=== PATIENT | male | born 1965 | race Caucasian/White ===

== ENCOUNTER 2019-09-25 15:54 | Inpatient (IN) | payer BC ==
[~2019-09-25] VITALS: Ht 182.9 cm; Wt 103.4 kg
[2019-09-25 15:50] VITALS: BP 114/64
[2019-09-25] MEDS ORDERED: ONDANSETRON PF 4 MG/2 ML VIAL. IVP PRN (16:30)
[2019-09-25] MEDS ORDERED: fentaNYL PF VIAL 100 MCG/2 ML VIAL IVP PRN (16:30)
[2019-09-25] MEDS: IV NORMAL SALINE 1000ML BAG 1,000 ML IV SCH (17:03)
[2019-09-25 19:00] VITALS: BP 109/59
[2019-09-25 19:02] LABS: BASO % 0 % (0-3); EOS % 0 % (0-3); HEMATOCRIT 40.5 % (39.0-53.0); HEMOGLOBIN 13.9 g/dL (13.0-17.5); LYMPH # 0.3 x10^3/uL (1.0-4.8); LYMPH % 4 % (24-48); MEAN CORPUSCULAR HEMOGLOBIN 30 pg (25-35); MEAN CORPUSCULAR HGB CONC 34 g/dL (31-37); MEAN CORPUSCULAR VOLUME 88 fL (79-100); MONO # 0.4 x10^3/uL (0.0-1.1); MONO % 5 % (0-9); NEUT # 8.3 x10^3/uL (1.8-7.7); NEUT % 91 % (31-73); PLATELET COUNT 169 x10^3/uL (140-400); RED BLOOD COUNT 4.59 x10^6/uL (4.30-5.70); RED CELL DISTRIBUTION WIDTH 13.5 % (11.5-14.5); WHITE BLOOD COUNT 9.1 x10^3/uL (4.0-11.0)
[2019-09-25 19:16] LABS: CALCIUM 8.2 mg/dL (8.5-10.1); CREATININE 0.9 mg/dL (0.7-1.3); GFR 87.9; POTASSIUM 4.5 mmol/L (3.5-5.1); TOTAL BILIRUBIN 1.5 mg/dL (0.2-1.0)
[2019-09-25 19:24] LABS: % BANDS 1 % (0-9); % LYMPHS 1 % (24-48); % MONOS 3 % (0-10); % SEGS 95 % (35-66); PLT ESTIMATE ADEQUATE (ADEQUATE)
[2019-09-25 23:00] VITALS: BP 103/55
[2019-09-26] VITALS (9 sets, daily range): BP systolic 103–122; BP diastolic 59–74
[2019-09-26] MEDS: IV NORMAL SALINE 1000ML BAG 1,000 ML IV SCH ×2 (06:20→16:54)
[2019-09-26] MEDS ORDERED: SINCALIDE 2.09 MCG in IV NORMAL SALINE 50ML 30 ML IV ONE (09:00)
[2019-09-26] MEDS: PANTOPRAZOLE IV PUSH 40 MG VIAL. IVP SCH (09:30)
--- NOTE | 2019-09-26 10:06 | NUR ---
SW following. Discussed with RN, pt from home, possible surgery today. SW will continue to follow.
--- NOTE | 2019-09-26 13:47 | HP ---
ADMIT DATE: 09/25/2019 HISTORY OF PRESENT ILLNESS: The patient is a 54-year-old male patient who presented to the Emergency Room via EMS. He states overnight, he began experiencing severe right upper quadrant pain. Apparently, he had similar symptoms on and off, which lasted about a year ago, underwent a workup and was told that the problem was his gallbladder. He has not had any nausea, vomiting, diarrhea, or significant chest discomfort. He denies any shortness of breath, fever, or chills. He was noted to be bradycardic and hypotensive on arrival and there are no alleviating or exacerbating factors in his symptoms. Otherwise, he states that since his prior gallbladder episode, he has been watching what he eats. He has been given acid-reducing medication, which helps manage his symptoms. He was basically extensively investigated in the Emergency Room and his lab work was basically unremarkable. His white cell count is only 8800. His chemistry was nonrevealing. His prothrombin time, INR and aPTT were normal. Urinalysis was also unrevealing. Ultrasound of the abdomen showed that the pancreas is not well visualized due to bowel gas. The liver length measures 15.1, has increased echogenicity noted throughout the liver, likely hepatic steatosis. His gallbladder was contracted. The gallbladder wall thickness measures 4.1. He has had a chest x-ray, which was unremarkable. He underwent CT scan of the abdomen and pelvis, which basically showed minimal bibasilar lung atelectasis. No evidence of free air identified in the abdomen. The liver, spleen, and adrenals grossly appear unremarkable. Gallbladder is mildly distended. Questionable gallstone identified in the gallbladder. Stomach is mildly distended. The visualized pancreas grossly appears unremarkable. His small bowel is nondilated. The appendix is normal, mild thickened appearance of the wall of the colon, particularly in the distal descending colon, sigmoid colon with minimal surrounding fat stranding, likely colitis. Urinary bladder is mildly distended. Small fat-containing umbilical hernia. The bilateral kidneys enhanced symmetrically. Moderate degenerative changes, bilateral hip joint, moderate degenerative changes of lumbar spine and the patient apparently has received IV fluid as well as IV fentanyl and famotidine and given that he had similar symptoms, a decision was made to transfer him to [facility] to arrange for hepatobiliary scan and to consult the surgical team. PAST MEDICAL HISTORY: Unremarkable except for what seems to be gastroesophageal reflux disease. PAST SURGICAL HISTORY: Tonsillectomy. ALLERGIES: He has no known drug allergies. MEDICATIONS: He is currently on Zantac 150 mg once a day. He is also on Tylenol 650 as needed. FAMILY HISTORY: He is the only child. He has no brothers or sisters. Father at age of 75 because of lung cancer. He also had coronary artery bypass graft in his late 60s. His mother at the age of 72 as a complication of diabetes with peripheral vascular disease and myocardial infarction. SOCIAL HISTORY: He is , has 1 son. He never smoked, does not drink alcohol or use any recreational drugs. He works for [employer]. REVIEW OF SYSTEMS: The patient denied any blurring of vision, cataract, glaucoma, or macular degeneration. Denied any earache, tinnitus or sensorineural deafness. Denied any nosebleeds, stuffy nose or postnasal drip. Denied any sore throat, sore tongue, toothache, hoarseness of voice or difficulty swallowing. Denied any nausea, vomiting, diarrhea or constipation. Denied any hematemesis, melena or hematochezia. Denied any dysuria, frequency or hematuria. Denied any chest pain, shortness of breath, orthopnea, paroxysmal nocturnal dyspnea. Denied any cough, phlegm or hemoptysis. Did complain of dizziness and what seems to be things spinning around that started actually even on Tuesday and Tuesday according to him. PHYSICAL EXAMINATION: GENERAL: On arrival to the Emergency Room, he apparently was bradycardic with a heart rate of 48 and his blood pressure was 87/40, temperature was 98.1, respiratory rate 20, and oxygen saturation was 99%. HEAD, EYES, EARS, NOSE AND THROAT: Normocephalic, atraumatic. NECK: Supple. HEART: Showed normal first and second sounds. No gallop or murmur. CHEST: Clear to auscultation. No crepitation or rhonchi. ABDOMEN: Distended, soft, nontender. No guarding or rigidity. No organomegaly. All hernial orifices intact. Bowel sounds normal. NEUROLOGIC: He was awake, alert, responding appropriately. All cranial nerves intact. EXTREMITIES: He moves extremities spontaneously. He has had an EKG, which basically showed that he has sinus bradycardia. LABORATORY DATA: Showed his white cell count was 8800, hemoglobin 14, hematocrit 42, MCV 90, and platelet count of 165,000. His chemistry showed a serum sodium 142, potassium 3.9, chloride 107, anion gap of 8, BUN 17, creatinine 1.2, estimated GFR was 63 mL per minute. His glucose 121, lactic acid was only 1.4, calcium was 8.7. Total bilirubin, AST, ALT, alkaline phosphatase were normal. Troponin was less than 0.017. Total protein was 6.5, albumin 3.5, lipase was 151. His prothrombin time, INR and aPTT were normal. Urinalysis showed the urine was yellow, clear with a pH of 8.5, specific gravity of 1.015. The urine was negative for protein, glucose, ketones, blood, nitrite. The urine was negative for leukocyte esterase, occasional rbc's, 1-4 wbc's, and no bacteria. His abdominal ultrasound showed the patient has contracted appearing gallbladder, probably secondary to n.p.o. status. He has also hepatic steatosis. Chest x-ray was unremarkable, showed no acute cardiopulmonary process or pneumoperitoneum and his CT scan of the abdomen with IV contrast showed mild thickened appearance of the wall of the colon, particularly in the distal descending colon and sigmoid colon with minimal surrounding fat stranding like colitis. Questionable gallstone identified in the gallbladder for which ultrasound was done. Given the fact that he has presented with right upper quadrant pain and the bladder wall was thickened and although it is contracted, a decision was made to transfer him to [facility] to keep him n.p.o., continue with IV fluid. We will arrange for him to have a hepatobiliary scan and to consult the surgical team. RAMON ARCHIBALD MD DR: ELIANA/paola JOB#: [id number] / [id number]
--- NOTE | 2019-09-26 13:51 | EKG ---
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
--- NOTE | 2019-09-26 13:52 | EKG ---
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
--- NOTE | 2019-09-26 13:55 | PN ---
DATE: 09/26/2019 SUBJECTIVE: The patient is resting, slightly propped up in bed, in no apparent respiratory distress. Today, he denied any complaint. In particular, he denied any right upper quadrant pain. He has no further episodes of dizziness, lightheadedness, or vertigo. Denied any nausea, vomiting, diarrhea, or constipation. He apparently has been up and about without feeling dizzy or lightheaded. PHYSICAL EXAMINATION: GENERAL: However, when I examined him this afternoon, he looked well and was clearly in no apparent respiratory distress. There is no pallor, jaundice, cyanosis or thyromegaly. No jugular venous distention. No lower limb edema. VITAL SIGNS: His heart rate was 79, blood pressure was 112/67, temperature was 98.1, respiratory rate was 17 and oxygen saturation was 96%. HEAD, EYES, EARS, NOSE AND THROAT: Normocephalic, atraumatic. NECK: Supple. HEART: Showed normal first and second heart sounds. No gallop or murmur. CHEST: Clear to auscultation. No crepitation or rhonchi. ABDOMEN: Distended, soft, nontender. NEUROLOGIC: He is awake, alert, responding appropriately. All cranial nerves are intact. He moves extremities without difficulty. His intake and output were incompletely recorded. LABORATORY DATA: However, his lab work this morning showed a white cell count of 9100; hemoglobin 13.9; hematocrit 40; MCV 88 and platelet count of 169,000. His chemistry showed a serum sodium 140, potassium 4.5, chloride 106, bicarbonate 29, anion gap of 5, BUN 17, creatinine was 0.9, estimated GFR was 88 mL per minute. His glucose 131. Calcium was 8.2. Total bilirubin, AST and ALT are markedly elevated; however, alkaline phosphatase is normal. Total protein 6. Albumin 3. ASSESSMENT: In summary, this is a 54-year-old male patient, who came with right abdominal pain, found to be bradycardic, hypotensive; however, his ultrasound showed thickened wall and contracted gallbladder and as per Dr. Daniel, the hepatobiliary scan was normal; however, surprisingly his liver enzymes have risen dramatically compared to what they were yesterday. PLAN: My plan is to consult the Gastroenterology team. I will also arrange for him to have an EKG and check 2 more sets of cardiac enzyme, perhaps to rule out right ventricular infarct. RAMON ARCHIBALD MD DR: ELIANA/paola JOB#: [id number] / [id number]
[2019-09-26 14:08] LABS: RED BLOOD COUNT 4.67 x10^6/uL (4.30-5.70); RED CELL DISTRIBUTION WIDTH 13.2 % (11.5-14.5); WHITE BLOOD COUNT 6.4 x10^3/uL (4.0-11.0)
[2019-09-26 14:19] LABS: CALCIUM 7.9 mg/dL (8.5-10.1); GFR 77.9; POTASSIUM 3.8 mmol/L (3.5-5.1)
[2019-09-26 14:24] LABS: ALBUMIN 3.1 g/dL (3.4-5.0); ALBUMIN/GLOBULIN RATIO 1.2 (1.0-1.7); TOTAL BILIRUBIN 0.7 mg/dL (0.2-1.0); TOTAL PROTEIN 5.7 g/dL (6.4-8.2)
--- NOTE | 2019-09-26 14:49 | PDOC2 ---
GI CONSULT Reason For Consult: RUQ pain and abnormal LFTs HPI: HPI: Pleasant 54 y/o male transferred from [facility] yesterday. Not feeling well since Tuesday - had some lightheadedness ("spinny head") and "pinging" pain in RUQ. Thought pain might have been related to eating greasy food. [place] pain in midback (not between shoulder blades). All symptoms worsened Tuesday morning and he went to the ER. Evaluation there included labs showing normal WBC, LFTs, and lipase. CXR was unrevealing. US showed contracted GB and hepatic steatosis. CT showed questionable gallstones, mildly distended stomach, and mild thickened appearance of the wall of the colon particularly in the distal descending and sigmoid colon w/ minimal surrounding fat stranding. Here, bili, AST, and ALT have been elevated. Had a HIDA - results pending. Has had similar RUQ pain in the past. Was evaluated for this at [facility] in 2016 - says was told his gallbladder didn't function normally but emergent surgery was not recommended. Around that time he was taking NSAIDs for aches and pains related to work (at [employer]) and was started on a PPI. Was hospitalized a few times for recurrent pain and through follow-up appointments eventually had an EGD and colonoscopy which were reportedly normal. Hasn't had sever pain since until yesterday morning, though occasionally has mild recurrence related to types of foods (burgers, fries, ice cream). Pain usually occurs after eating. PCP advised he change from PPI to H2 joan at some point due to concerns for long-term use and possible bone loss. He now takes ranitidine 150mg BID (after breakfast and before bed) for occasional reflux. Also takes Tums PRN. No dysphagia, n/v, diarrhea, constipation, hematochezia, melena, change in appetite, bloating, or weight loss. No liver, pancreas, or PUD history. Now takes Tylenol instead of NSAIDs. He mentions he was told his heart rate was low in the ambulance. Nurse says plans to transfer to cardiac unit for ?EKG abnormality. PMH: PMH: GERD tonsillectomy FH: Family History: Cancer (father - lung), CAD, DM, Other (grandmother - gallstones) Social History: Smoke: No ALCOHOL: none Drugs: None ROS: GEN: Denies fevers, chills, sweats HEENT: Denies blurred vision, sore throat CV: Denies chest pain RESP: Denies shortness of air, cough GI: Per HPI : Denies hematuria, dysuria ENDO: Denies weight changes NEURO: +dizziness MSK: Denies weakness, joint pain/swelling SKIN: Denies jaundice, pruritus Vitals: Vitals: Vital Signs Date Time Temp Pulse Resp B/P (MAP) Pulse Ox O2 Delivery O2 Flow Rate FiO2 09/26/19 10:51 98.1 79 17 112/67 (82) 96 Room Air 98.1 Labs: Labs: Laboratory Tests Test 09/25/19 18:35 09/26/19 13:55 White Blood Count 9.1 x10^3/uL (4.0-11.0) 6.4 x10^3/uL (4.0-11.0) Red Blood Count 4.59 x10^6/uL (4.30-5.70) 4.67 x10^6/uL (4.30-5.70) Hemoglobin 13.9 g/dL (13.0-17.5) 14.0 g/dL (13.0-17.5) Hematocrit 40.5 % (39.0-53.0) 41.0 % (39.0-53.0) Mean Corpuscular Volume 88 fL (79-100) 88 fL (79-100) Mean Corpuscular Hemoglobin 30 pg (25-35) 30 pg (25-35) Mean Corpuscular Hemoglobin Concent 34 g/dL (31-37) 34 g/dL (31-37) Red Cell Distribution Width 13.5 % (11.5-14.5) 13.2 % (11.5-14.5) Platelet Count 169 x10^3/uL (140-400) 159 x10^3/uL (140-400) Neutrophils (%) (Auto) 91 % (31-73) Lymphocytes (%) (Auto) 4 % (24-48) Monocytes (%) (Auto) 5 % (0-9) Eosinophils (%) (Auto) 0 % (0-3) Basophils (%) (Auto) 0 % (0-3) Neutrophils # (Auto) 8.3 x10^3/uL (1.8-7.7) Lymphocytes # (Auto) 0.3 x10^3/uL (1.0-4.8) Monocytes # (Auto) 0.4 x10^3/uL (0.0-1.1) Eosinophils # (Auto) 0.0 x10^3/uL (0.0-0.7) Basophils # (Auto) 0.0 x10^3/uL (0.0-0.2) Segmented Neutrophils % 95 % (35-66) Band Neutrophils % 1 % (0-9) Lymphocytes % 1 % (24-48) Monocytes % 3 % (0-10) Platelet Estimate Adequate (ADEQUATE) Sodium Level 140 mmol/L (136-145) 141 mmol/L (136-145) Potassium Level 4.5 mmol/L (3.5-5.1) 3.8 mmol/L (3.5-5.1) Chloride Level 106 mmol/L (98-107) 107 mmol/L (98-107) Carbon Dioxide Level 29 mmol/L (21-32) 27 mmol/L (21-32) Anion Gap 5 (6-14) 7 (6-14) Blood Urea Nitrogen 17 mg/dL (8-26) 11 mg/dL (8-26) Creatinine 0.9 mg/dL (0.7-1.3) 1.0 mg/dL (0.7-1.3) Estimated GFR (Cockcroft-Gault) 87.9 77.9 BUN/Creatinine Ratio 19 (6-20) 11 (6-20) Glucose Level 131 mg/dL (70-99) 120 mg/dL (70-99) Calcium Level 8.2 mg/dL (8.5-10.1) 7.9 mg/dL (8.5-10.1) Total Bilirubin 1.5 mg/dL (0.2-1.0) 0.7 mg/dL (0.2-1.0) Aspartate Amino Transf (AST/SGOT) 200 U/L (15-37) 93 U/L (15-37) Alanine Aminotransferase (ALT/SGPT) 169 U/L (16-63) 152 U/L (16-63) Alkaline Phosphatase 68 U/L (46-116) 69 U/L (46-116) Troponin I Quantitative < 0.017 ng/mL (0.000-0.055) < 0.017 ng/mL (0.000-0.055) Total Protein 6.0 g/dL (6.4-8.2) 5.7 g/dL (6.4-8.2) Albumin 3.0 g/dL (3.4-5.0) 3.1 g/dL (3.4-5.0) Albumin/Globulin Ratio 1.0 (1.0-1.7) 1.2 (1.0-1.7) Lipase 126 U/L (73-393) Allergies: Coded Allergies: No Known Medication Allergies (Verified Allergy, Unknown, 09/25/19) Medications: Current Medications Medications (Trade) Dose Ordered Sig/Neeraj Route PRN Reason Start Time Stop Time Status Last Admin Dose Admin Sodium Chloride 1,000 ml @ 75 mls/hr [id number] IV 09/25/19 16:30 09/26/19 06:20 Fentanyl Citrate (Fentanyl 2ml Vial) 50 mcg PRN Q3HRS PRN IVP PAIN 09/25/19 16:30 09/25/19 17:00 Pantoprazole Sodium (PROTONIX VIAL for IV PUSH) 40 mg DAILYAC IVP 09/26/19 07:30 09/26/19 09:30 Sincalide 2.09 mcg/Sodium Chloride 30 ml @ 120 mls/hr 1X ONCE IV 09/26/19 09:00 09/26/19 09:14 DC 09/26/19 09:07 PE: GEN: NAD HEENT: Atraumatic, PERRL LUNGS: CTAB HEART: RRR ABD: NABS, S/ND/NT EXTREMITY: No edema SKIN: No rashes, no jaundice NEURO/PSYCH: A & O 3 A/P: A/P: Chronic/recurrent RUQ pain - worse yesterday Abnormal LFTs GERD - on H2 joan BID, had EGD within 5 years CRC screen - reportedly normal <[address] [facility] Hepatic steatosis ?cholelithiasis -- Reviewed w/ Dr. Aragon - recheck US - okay to resume diet tonight after. Agree w/ PPI. Recheck labs in [facility] September 26, 2019 14:49
--- NOTE | 2019-09-26 16:09 | PDOC2 ---
PEDRO LUIS RICHTER [employer] 09/26/19 1609: CARDIAC CONSULT DATE OF CONSULT Date of Consult DATE: 09/26/19 TIME: 15:57 REASON FOR CONSULT Reason for Consult: EKG REFERRING PHYSICIAN Referring Physician: Dr. Rich SOURCE Source: Chart review, Patient HISTORY OF PRESENT ILLNESS HISTORY OF PRESENT ILLNESS This is a 54 yo male who presented initially to [facility] for abdominal pain. Was noted to be bradycardiac and mildly hypotensive upon arrival to the ED. Was transferred to [facility] with concerns of gallstones. Initial EKG at [facility] shows SB. Note acute changes. HR has improved here at [facility]. EKG x2 without acute changes. Trop negative x2. Denies any chest pain, palpitations, or SOA. Abdominal pain has improved. PAST MEDICAL HISTORY GI: GERD Hepatobiliary: Cholelithiasis PAST SURGICAL HISTORY Past Surgical History: Tonsillectomy FAMILY HISTORY Family History: Diabetes, Heart Disease SOCIAL HISTORY Smoke: No ALCOHOL: none Drugs: None Lives: with Family CURRENT MEDICATIONS CURRENT MEDICATIONS Current Medications Medications (Trade) Dose Ordered Sig/Nereaj Route PRN Reason Start Time Stop Time Status Last Admin Dose Admin Sodium Chloride 1,000 ml @ 75 mls/hr [id number] IV 09/25/19 16:30 09/26/19 06:20 Fentanyl Citrate (Fentanyl 2ml Vial) 50 mcg PRN Q3HRS PRN IVP PAIN 09/25/19 16:30 09/25/19 17:00 Pantoprazole Sodium (PROTONIX VIAL for IV PUSH) 40 mg DAILYAC IVP 09/26/19 07:30 09/26/19 09:30 Sincalide 2.09 mcg/Sodium Chloride 30 ml @ 120 mls/hr 1X ONCE IV 09/26/19 09:00 09/26/19 09:14 DC 09/26/19 09:07 ALLERGIES ALLERGIES: Coded Allergies: No Known Medication Allergies (Verified Allergy, Unknown, 09/25/19) ROS Review of System 14 point ROS conducted with pertinent positives noted above in HPI PHYSICAL EXAM General: Alert, Oriented X3, Cooperative, No acute distress HEENT: Atraumatic, Mucous membr. moist/pink Lungs: Clear to auscultation Heart: Regular rate, Normal S1, Normal S2, No murmurs Abdomen: Soft Extremities: No edema Skin: No breakdown, No significant lesion Neuro: Normal speech, Sensation intact Psych/Mental Status: Mental status NL, Mood NL MUSCULOSKELETAL: No deformity, No swelling VITALS/I&O VITALS/I&O: Vital Signs Date Time Temp Pulse Resp B/P (MAP) Pulse Ox O2 Delivery O2 Flow Rate FiO2 09/26/19 15:05 97.9 82 18 113/64 (80) 95 Room Air 97.9 I & O 09/25/19 09/25/19 09/26/19 15:00 23:00 07:00 Output Total 400 ml Balance -400 ml LABS Lab: Laboratory Tests Test 09/25/19 18:35 09/26/19 13:55 White Blood Count 9.1 x10^3/uL (4.0-11.0) 6.4 x10^3/uL (4.0-11.0) Red Blood Count 4.59 x10^6/uL (4.30-5.70) 4.67 x10^6/uL (4.30-5.70) Hemoglobin 13.9 g/dL (13.0-17.5) 14.0 g/dL (13.0-17.5) Hematocrit 40.5 % (39.0-53.0) 41.0 % (39.0-53.0) Mean Corpuscular Volume 88 fL (79-100) 88 fL (79-100) Mean Corpuscular Hemoglobin 30 pg (25-35) 30 pg (25-35) Mean Corpuscular Hemoglobin Concent 34 g/dL (31-37) 34 g/dL (31-37) Red Cell Distribution Width 13.5 % (11.5-14.5) 13.2 % (11.5-14.5) Platelet Count 169 x10^3/uL (140-400) 159 x10^3/uL (140-400) Neutrophils (%) (Auto) 91 % (31-73) H Lymphocytes (%) (Auto) 4 % (24-48) L Monocytes (%) (Auto) 5 % (0-9) Eosinophils (%) (Auto) 0 % (0-3) Basophils (%) (Auto) 0 % (0-3) Neutrophils # (Auto) 8.3 x10^3/uL (1.8-7.7) H Lymphocytes # (Auto) 0.3 x10^3/uL (1.0-4.8) L Monocytes # (Auto) 0.4 x10^3/uL (0.0-1.1) Eosinophils # (Auto) 0.0 x10^3/uL (0.0-0.7) Basophils # (Auto) 0.0 x10^3/uL (0.0-0.2) Segmented Neutrophils % 95 % (35-66) H Band Neutrophils % 1 % (0-9) Lymphocytes % 1 % (24-48) L Monocytes % 3 % (0-10) Platelet Estimate Adequate (ADEQUATE) Sodium Level 140 mmol/L (136-145) 141 mmol/L (136-145) Potassium Level 4.5 mmol/L (3.5-5.1) 3.8 mmol/L (3.5-5.1) Chloride Level 106 mmol/L (98-107) 107 mmol/L (98-107) Carbon Dioxide Level 29 mmol/L (21-32) 27 mmol/L (21-32) Anion Gap 5 (6-14) L 7 (6-14) Blood Urea Nitrogen 17 mg/dL (8-26) 11 mg/dL (8-26) Creatinine 0.9 mg/dL (0.7-1.3) 1.0 mg/dL (0.7-1.3) Estimated GFR (Cockcroft-Gault) 87.9 77.9 BUN/Creatinine Ratio 19 (6-20) 11 (6-20) Glucose Level 131 mg/dL (70-99) H 120 mg/dL (70-99) H Calcium Level 8.2 mg/dL (8.5-10.1) L 7.9 mg/dL (8.5-10.1) L Total Bilirubin 1.5 mg/dL (0.2-1.0) H 0.7 mg/dL (0.2-1.0) Aspartate Amino Transferase (AST) 200 U/L (15-37) H 93 U/L (15-37) H Alanine Aminotransferase (ALT) 169 U/L (16-63) H 152 U/L (16-63) H Alkaline Phosphatase 68 U/L (46-116) 69 U/L (46-116) Troponin I Quantitative < 0.017 ng/mL (0.000-0.055) < 0.017 ng/mL (0.000-0.055) Total Protein 6.0 g/dL (6.4-8.2) L 5.7 g/dL (6.4-8.2) L Albumin 3.0 g/dL (3.4-5.0) L 3.1 g/dL (3.4-5.0) L Albumin/Globulin Ratio 1.0 (1.0-1.7) 1.2 (1.0-1.7) Lipase 126 U/L (73-393) Laboratory Tests 09/25/19 18:35 09/26/19 13:55 Laboratory Tests 09/25/19 18:35 09/26/19 13:55 ASSESSMENT/PLAN ASSESSMENT/PLAN 1. Abdominal pain, ? cholelithiasis; HIDA scan reportedly okay. Abd US to be repeated 2. Elevated LFTs. hepatic steatosis 3. Sinus bradycardia; noted at [facility]. EKG without significant acute changes. Troponin negative x2. HR has been stable per VS. Not on tele 4. GERD Recommendations Tele monitoring Lipids Echo to assess LV systolic function JULIETA LOUIS MD 09/26/19 1618: CARDIAC CONSULT ASSESSMENT/PLAN ASSESSMENT/PLAN Patient seen and examined Discussed with our nurse practitioner and I agree with her assessment. Abdominal pain. Significantly improved. GI work-up in progress. Elevated liver function testing. GI as above. Episodes of sinus bradycardia while the patient was having his abdominal pain. No acute EKG ischemic changes. Troponin negative. Will complete rule out. Echocardiogram for LV function. Will place the patient in a telemetry bed. Thank you for allowing us to participate in the care of your patient. PEDRO LUIS RICHTER APRN September 26, 2019 16:09 JULIETA LOUIS MD September 26, 2019 16:18
--- NOTE | 2019-09-26 16:34 | RAD ---
HEPATOBILIARY SCAN WITH EJECTION FRACTION History: Cholelithiasis, right upper quadrant abdominal pain Comparison: CT abdomen pelvis and abdominal ultrasound dated 09/25/2019 Procedure: Serial static images are obtained of the liver and biliary system in the frontal projection following IV administration of 5.5 mCi of Technetium 99m Choletec. After filling of the gallbladder, 2.09 mcg of CCK were infused over 30 minutes and dynamic imaging continued over this period. The gallbladder ejection fraction was calculated. Findings: There is prompt hepatic clearance of tracer from the blood pool. There is homogeneous distribution throughout the liver. There is normal filling of the gallbladder and normal emptying into the biliary system and small bowel. The gallbladder ejection fraction measures 65% (normal gallbladder EF is 35% or greater). IMPRESSION: 1. The cystic duct and common bile duct are patent. Negative for acute cholecystitis. 2. The gallbladder ejection fraction is normal. Electronically signed by: Maximino Sidhu MD (09/26/2019 4:31 PM) [id number]
--- NOTE | 2019-09-26 21:33 | RAD ---
Limited abdomen ultrasound HISTORY: Cholelithiasis, abdominal pain, gallstone on CT imaging, elevated liver function tests. FINDINGS: Imaged pancreas, upper abdominal IVC and upper abdominal aorta are normal although most segments of these vessels are obscured by bowel gas shadowing as well as the distal tail and a portion of the head of the pancreas are obscured. Increased liver echogenicity most likely steatosis. No liver mass or nodularity documented. No biliary ductal dilation common body diameters 4 mm. There are echogenic ill-defined shadowing gallstones. There is gallbladder wall thickening with a wall thickness of 6 mm. No pericholecystic fluid documented. Right renal length 9.8 cm, lower pole obscured by bowel gas shadowing, no right renal mass, calculus or hydronephrosis documented. IMPRESSION: 1. Cholelithiasis, with abnormal gallbladder wall thickening which is likely reflective of inflammatory changes from cholecystitis. Adenomyomatosis would also be a possibility. No biliary ductal dilation. 2. Increased liver echogenicity most likely due to steatosis. Electronically signed by: Syed Haynes MD (09/26/2019 9:31 PM) [facility]
[2019-09-27] VITALS (11 sets, daily range): BP systolic 113–138; BP diastolic 68–79
[2019-09-27 04:55] LABS: ALBUMIN 2.8 g/dL (3.4-5.0); DIRECT BILIRUBIN 0.2 mg/dL (0.0-0.2); TOTAL BILIRUBIN 0.5 mg/dL (0.2-1.0); TOTAL PROTEIN 5.7 g/dL (6.4-8.2)
[2019-09-27] MEDS: PANTOPRAZOLE IV PUSH 40 MG VIAL. IVP SCH (08:53)
[2019-09-27] MEDS: IV NORMAL SALINE 1000ML BAG 1,000 ML IV SCH ×3 (08:53→21:23)
--- NOTE | 2019-09-27 09:48 | PDOC ---
Subjective: Subjective: Light pressure in RUQ after eating last night. Objective: Vital Signs: Vital Signs Date Time Temp Pulse Resp B/P (MAP) Pulse Ox O2 Delivery O2 Flow Rate FiO2 09/27/19 07:21 98.5 80 16 118/76 (90) 95 Room Air 98.5 Labs: Laboratory Tests Test 09/26/19 13:55 09/27/19 04:05 White Blood Count 6.4 x10^3/uL Red Blood Count 4.67 x10^6/uL Hemoglobin 14.0 g/dL Hematocrit 41.0 % Mean Corpuscular Volume 88 fL Mean Corpuscular Hemoglobin 30 pg Mean Corpuscular Hemoglobin Concent 34 g/dL Red Cell Distribution Width 13.2 % Platelet Count 159 x10^3/uL Sodium Level 141 mmol/L Potassium Level 3.8 mmol/L Chloride Level 107 mmol/L Carbon Dioxide Level 27 mmol/L Anion Gap 7 Blood Urea Nitrogen 11 mg/dL Creatinine 1.0 mg/dL Estimated GFR (Cockcroft-Gault) 77.9 BUN/Creatinine Ratio 11 Glucose Level 120 mg/dL Calcium Level 7.9 mg/dL Total Bilirubin 0.7 mg/dL 0.5 mg/dL Aspartate Amino Transf (AST/SGOT) 93 U/L 62 U/L Alanine Aminotransferase (ALT/SGPT) 152 U/L 112 U/L Alkaline Phosphatase 69 U/L 72 U/L Troponin I Quantitative < 0.017 ng/mL Total Protein 5.7 g/dL 5.7 g/dL Albumin 3.1 g/dL 2.8 g/dL Albumin/Globulin Ratio 1.2 Direct Bilirubin 0.2 mg/dL Imaging: HIDA 09/25 Findings: There is prompt hepatic clearance of tracer from the blood pool. There is homogeneous distribution throughout the liver. There is normal filling of the gallbladder and normal emptying into the biliary system and small bowel. The gallbladder ejection fraction measures 65% (normal gallbladder EF is 35% or greater). IMPRESSION: 1. The cystic duct and common bile duct are patent. Negative for acute cholecystitis. 2. The gallbladder ejection fraction is normal. Abd US 09/25 FINDINGS: Imaged pancreas, upper abdominal IVC and upper abdominal aorta are normal although most segments of these vessels are obscured by bowel gas shadowing as well as the distal tail and a portion of the head of the pancreas are obscured. Increased liver echogenicity most likely steatosis. No liver mass or nodularity documented. No biliary ductal dilation common body diameters 4 mm. There are echogenic ill-defined shadowing gallstones. There is gallbladder wall thickening with a wall thickness of 6 mm. No pericholecystic fluid documented. Right renal length 9.8 cm, lower pole obscured by bowel gas shadowing, no right renal mass, calculus or hydronephrosis documented. IMPRESSION: 1. Cholelithiasis, with abnormal gallbladder wall thickening which is likely reflective of inflammatory changes from cholecystitis. Adenomyomatosis would also be a possibility. No biliary ductal dilation. 2. Increased liver echogenicity most likely due to steatosis. Echo 09/26 pending PE: GEN: NAD LUNGS: CTAB HEART: RRR ABD: S/ND/NT NEURO/PSYCH: A & O 3 A/P: Chronic/recurrent RUQ pain Abnormal LFTs - better Cholelithiasis GERD -- NPO this morning. Will ask surgery to comment re: cholelithiasis, recurrent abd pain. Hemodynamically unstable?: No Is patient in severe pain?: No Is NPO status required?: Yes ALPHONSE LOPEZ September 27, 2019 09:48
--- NOTE | 2019-09-27 10:00 | NUR ---
SS following up with discharge planning. SS reviewed pt chart and discussed with pt RN. Pt is from home and is currently on room air. Pt is NPO. Dr. Daniel consulted by GI. SS will continue to follow for discharge planning.
--- NOTE | 2019-09-27 10:24 | CARD ---
MR#: [id number] Date of Study: 09/27/2019 Ordering Physician: JULIETA LOUIS, Referring Physician: JULIETA LOUIS, Tech: Rosalina Allison OZZIE APPROVED REPORT EXAM: Two-dimensional and M-mode echocardiogram with Doppler and color Doppler. Other Information Quality : Good INDICATION Chest Pain 2D DIMENSIONS RVDd2.5 (2.9-3.5cm)Left Atrium(2D)2.8 (1.6-4.0cm) IVSd0.9 (0.7-1.1cm)Aortic Root(2D)2.2 (2.0-3.7cm) LVDd3.7 (3.9-5.9cm)LVOT Diameter2.2 (1.8-2.4cm) PWd1.0 (0.7-1.1cm)LVDs2.6 (2.5-4.0cm) FS (%) 29.9 %SV33.4 ml LVEF(%)58.0 (>50%) Aortic Valve AoV Peak Melchor.126.1cm/sAoV VTI22.4cm AO Peak GR.6.4mmHgLVOT Peak Melchor.119.4cm/s AO Mean GR.4mmHgAVA (VMAX)3.45cm2 JANETT (VTI)4.00cm2 Mitral Valve MV E Lmhahjsj13.4cm/sMV DECEL HRBE274nz MV A Auehrhxq84.0cm/sE/A Ratio1.3 Pulmonary Vein S1 Emiiykrh73.6cm/sD2 Vbaxncwd85.3cm/s LEFT VENTRICLE The left ventricle is normal size. There is normal left ventricular wall thickness. The left ventricu lar systolic function is normal and the ejection fraction is within normal range. The Ejection Fracti on is 55-60%. There is normal LV segmental wall motion. The left ventricular diastolic function and f illing is normal for age. RIGHT VENTRICLE The right ventricle is normal size. The right ventricular systolic function is normal. ATRIA The left atrium size is normal. The right atrium size is normal. The interatrial septum is intact wit h no evidence for an atrial septal defect or patent foramen ovale as noted on 2-D or Doppler imaging. AORTIC VALVE The aortic valve is calcified but opens well. Doppler and Color Flow revealed no significant aortic r egurgitation. There is no significant aortic valvular stenosis. MITRAL VALVE The mitral valve is calcified but opens well. There is no evidence of mitral valve prolapse. There is no mitral valve stenosis. Doppler and Color Flow revealed no mitral valve regurgitation noted. TRICUSPID VALVE The tricuspid valve is normal in structure and function. Doppler and Color Flow revealed no tricuspid valve regurgitation noted. There is no tricuspid valve stenosis. PULMONIC VALVE The pulmonic valve is not well visualized. Doppler and Color Flow revealed no pulmonic valvular regur gitation. There is no pulmonic valvular stenosis. GREAT VESSELS The aortic root is normal in size. The ascending aorta is not well seen. The IVC is normal in size an d collapses >50% with inspiration. PERICARDIAL EFFUSION There is no evidence of significant pericardial effusion. Critical Notification Critical Value: No <Conclusion> The left ventricular systolic function is normal and the ejection fraction is within normal range. Th e Ejection Fraction is 55-60%. There is normal LV segmental wall motion. Signed by : Rusty Juarez, Electronically Approved : 09/27/2019 10:23:34
--- NOTE | 2019-09-27 10:55 | PDOC ---
PEDRO LUIS RICHTER SOFTWARE DEVELOPMENT ADVISOR 09/27/19 1055: CARDIO Progress Notes Date and Time Date of Service 09/27/19 Time of Evaluation 1110 Subjective Subjective: No Chest Pain, No shortness of breath, No Palpitations, Other (mild abdominal pain overnight ) Vitals Vitals Vital Signs Date Time Temp Pulse Resp B/P (MAP) Pulse Ox O2 Delivery O2 Flow Rate FiO2 09/27/19 10:31 98.3 68 16 123/74 (90) 98 Room Air 98.3 Weight Weight [ ] Input and Output Intake and Output Intake and Output 09/27/19 07:00 Intake Total 710 ml Output Total 1175 ml Balance -465 ml Intake Oral 710 ml Output Urine Total 1175 ml # Voids 4 Laboratory Labs Laboratory Tests Test 09/26/19 13:55 09/27/19 04:05 White Blood Count 6.4 x10^3/uL (4.0-11.0) Red Blood Count 4.67 x10^6/uL (4.30-5.70) Hemoglobin 14.0 g/dL (13.0-17.5) Hematocrit 41.0 % (39.0-53.0) Mean Corpuscular Volume 88 fL (79-100) Mean Corpuscular Hemoglobin 30 pg (25-35) Mean Corpuscular Hemoglobin Concent 34 g/dL (31-37) Red Cell Distribution Width 13.2 % (11.5-14.5) Platelet Count 159 x10^3/uL (140-400) Sodium Level 141 mmol/L (136-145) Potassium Level 3.8 mmol/L (3.5-5.1) Chloride Level 107 mmol/L (98-107) Carbon Dioxide Level 27 mmol/L (21-32) Anion Gap 7 (6-14) Blood Urea Nitrogen 11 mg/dL (8-26) Creatinine 1.0 mg/dL (0.7-1.3) Estimated GFR (Cockcroft-Gault) 77.9 BUN/Creatinine Ratio 11 (6-20) Glucose Level 120 mg/dL (70-99) Calcium Level 7.9 mg/dL (8.5-10.1) Total Bilirubin 0.7 mg/dL (0.2-1.0) 0.5 mg/dL (0.2-1.0) Aspartate Amino Transf (AST/SGOT) 93 U/L (15-37) 62 U/L (15-37) Alanine Aminotransferase (ALT/SGPT) 152 U/L (16-63) 112 U/L (16-63) Alkaline Phosphatase 69 U/L (46-116) 72 U/L (46-116) Troponin I Quantitative < 0.017 ng/mL (0.000-0.055) Total Protein 5.7 g/dL (6.4-8.2) 5.7 g/dL (6.4-8.2) Albumin 3.1 g/dL (3.4-5.0) 2.8 g/dL (3.4-5.0) Albumin/Globulin Ratio 1.2 (1.0-1.7) Direct Bilirubin 0.2 mg/dL (0.0-0.2) Physical Exam HEENT: Neck Supple W Full Motion Chest: Symmetric LUNGS: Clear to Auscultation Heart: RRR Abdomen: Other (mild tenderness) Extremities: No Edema Neurology: alert, oriented, follow commands Assessment Assessment 1. Abdominal pain, recurrent: ? cholelithiasis. HIDA scan okay. Abd US with ev idence of cholelithiasis. Surgery to see today 2. Elevated LFTs. hepatic steatosis 3. Dizziness; resolved. ? related to hypotension versus bradyarrhythmia. Echo with preserved LV systolic function. No WMA. No acute events on telemetry overnight 3. Sinus bradycardia; noted at [facility]. EKG without significant acute changes. Troponin negative x2. HR has been stable per VS. 4. GERD Recommendations Lipids, TSH Outpatient event monitor arranged Overall mild risk for surgery from a CV standpoint Supportive care Follow up in our office with Dr. Louis 11/22/19 at 10:30. JULIETA LOUIS MD 09/27/19 1657: CARDIO Progress Notes Assessment Assessment Patient seen and examined Discussed with our nurse practitioner and agree with her assessment. Abdominal pain, recurrent: Surgery tentatively planned for later today. Would be at mild risk from a cardiovascular viewpoint. Dizziness; resolved. ? related to hypotension versus bradyarrhythmia. Echo with preserved LV systolic function. No WMA. No acute events on telemetry overnight Sinus bradycardia; noted at [facility]. EKG without significant acute changes. Troponin negative x2. HR has been stable per VS. PEDRO LUIS RICHTER APRN September 27, 2019 10:55 JULIETA LOUIS MD September 27, 2019 16:57
--- NOTE | 2019-09-27 11:32 | PN ---
DATE: 09/27/2019 SUBJECTIVE: The patient is resting, slightly propped up in bed, in no apparent distress, awake, alert. Denied any complaint. He was extensively investigated and apparently has 2 sets of cardiac enzymes that ruled out myocardial infarction. His left ventricular systolic function is normal. His repeat ultrasound showed that he has cholelithiasis with abnormal gallbladder wall thickening, which is likely reflective inflammatory changes from cholecystitis. He has adenomyomatosis, would also be a possibility. No biliary ductal dilatation. Increased liver echogenicity, most likely due to steatosis. The surgical team was consulted again for laparoscopic cholecystectomy. PHYSICAL EXAMINATION: GENERAL: When I saw him today, he looked well and was clearly in no apparent respiratory distress. No pallor, jaundice, cyanosis or thyromegaly. No jugular venous distention. No lower limb edema. VITAL SIGNS: His heart rate was 68, blood pressure was 123/74, temperature was 98.3, respiratory rate was 18 and oxygen saturation was 98%. HEAD, EYES, EARS, NOSE AND THROAT: Showed normocephalic, atraumatic. NECK: Supple. HEART: Normal first and second heart sounds. No gallop, rub or murmur. CHEST: Clear to auscultation. No crepitation or rhonchi. ABDOMEN: Distended, soft. Tenderness mostly in the right upper quadrant. No guarding or rigidity. No organomegaly. All hernial orifices intact. Bowel sounds normal. NEUROLOGIC: He is awake, alert, responding appropriately. All his cranial nerves were intact. He moves extremities without difficulty. He ambulates without assistance or assistive devices. His intake and output were incompletely recorded. LABORATORY DATA: As of this morning showed a white cell count 6400, hemoglobin 14, hematocrit 41, MCV 88 and platelet count of 159,000. His liver panel continues to show his bilirubin is actually improved down to from 1.5-0.5. His AST and ALT are elevated, although trending down. Total protein was 5.7, albumin 2.8. ASSESSMENT AND PLAN: Acute cholecystitis with a plan to apparently the surgical team was consulted for definitive surgical treatment. RAMON ARCHIBALD MD DR: ELIANA/paola JOB#: [id number] / [id number]
[2019-09-27 11:35] LABS: CHOLESTEROL/HDL RATIO 4.1
--- NOTE | 2019-09-27 12:22 | PDOC2 ---
CONSULT Date of Consult Date of Consult DATE: 09/27/19 TIME: 12:16 Reason for Consult Reason for Consult: cholelithiasis Referring Physician Referring Physician: Dr Rich Identification/Chief Complaint Chief Complaint abdominal pain, dizziness Source Source: Chart review, Patient History of Present Illness Reason for Visit: Mr Billy is a 54 yo gentleman admitted with abdominal pain and dizziness. Initial eval of his GB (US and HIDA) were negative. Repeat US shows cholelithiasis and some mild wall thickening. Does relate some fatty foods cause some sx Past Medical History GI: GERD Hepatobiliary: Cholelithiasis Past Surgical History Past Surgical History: Tonsillectomy Family History Family History: Diabetes, Heart Disease Social History No ALCOHOL: none Drugs: None Lives: with Family Current Medications Current Medications Current Medications Sodium Chloride 1,000 ml @ 75 mls/hr [id number] IV Last administered on 09/27/19at 08:53; Start 09/25/19 at 16:30 Fentanyl Citrate (Fentanyl 2ml Vial) 50 mcg PRN Q3HRS PRN IVP PAIN Last administered on 09/25/19at 17:00; Start 09/25/19 at 16:30 Ondansetron HCl (Zofran) 4 mg PRN Q6HRS PRN IVP NAUSEA/VOMITING; Start 09/25/19 at 16:30 Pantoprazole Sodium (PROTONIX VIAL for IV PUSH) 40 mg DAILYAC IVP Last administered on 09/27/19at 08:53; Start 09/26/19 at 07:30 Sincalide 2.09 mcg/Sodium Chloride 30 ml @ 120 mls/hr 1X ONCE IV Last administered on 09/26/19at 09:07; Start 09/26/19 at 09:00; Stop 09/26/19 at 09:14; Status DC Cefazolin Sodium 3 gm/Dextrose 100 ml @ 200 mls/hr 1X PREOP PRN IV protocol; Start 09/28/19 at 06:00; Stop 09/28/19 at 15:00 Allergies Allergies: Coded Allergies: No Known Medication Allergies (Verified Allergy, Unknown, 09/25/19) ROS Cardiovascular: yes Other (bradycardia) Gastrointestinal: Yes Nausea, Yes Abdominal Pain Neurological: Yes Dizziness Physical Exam General: Alert, Oriented X3, No acute distress HEENT: Atraumatic Lungs: Normal air movement Abdomen: Soft Vitals VITALS Vital Signs Date Time Temp Pulse Resp B/P (MAP) Pulse Ox O2 Delivery O2 Flow Rate FiO2 09/27/19 10:31 98.3 68 16 123/74 (90) 98 Room Air 98.3 Labs Labs Laboratory Tests Test 09/25/19 18:35 09/26/19 13:55 09/27/19 04:05 White Blood Count 9.1 x10^3/uL (4.0-11.0) 6.4 x10^3/uL (4.0-11.0) Red Blood Count 4.59 x10^6/uL (4.30-5.70) 4.67 x10^6/uL (4.30-5.70) Hemoglobin 13.9 g/dL (13.0-17.5) 14.0 g/dL (13.0-17.5) Hematocrit 40.5 % (39.0-53.0) 41.0 % (39.0-53.0) Mean Corpuscular Volume 88 fL (79-100) 88 fL (79-100) Mean Corpuscular Hemoglobin 30 pg (25-35) 30 pg (25-35) Mean Corpuscular Hemoglobin Concent 34 g/dL (31-37) 34 g/dL (31-37) Red Cell Distribution Width 13.5 % (11.5-14.5) 13.2 % (11.5-14.5) Platelet Count 169 x10^3/uL (140-400) 159 x10^3/uL (140-400) Neutrophils (%) (Auto) 91 % (31-73) Lymphocytes (%) (Auto) 4 % (24-48) Monocytes (%) (Auto) 5 % (0-9) Eosinophils (%) (Auto) 0 % (0-3) Basophils (%) (Auto) 0 % (0-3) Neutrophils # (Auto) 8.3 x10^3/uL (1.8-7.7) Lymphocytes # (Auto) 0.3 x10^3/uL (1.0-4.8) Monocytes # (Auto) 0.4 x10^3/uL (0.0-1.1) Eosinophils # (Auto) 0.0 x10^3/uL (0.0-0.7) Basophils # (Auto) 0.0 x10^3/uL (0.0-0.2) Segmented Neutrophils % 95 % (35-66) Band Neutrophils % 1 % (0-9) Lymphocytes % 1 % (24-48) Monocytes % 3 % (0-10) Platelet Estimate Adequate (ADEQUATE) Sodium Level 140 mmol/L (136-145) 141 mmol/L (136-145) Potassium Level 4.5 mmol/L (3.5-5.1) 3.8 mmol/L (3.5-5.1) Chloride Level 106 mmol/L (98-107) 107 mmol/L (98-107) Carbon Dioxide Level 29 mmol/L (21-32) 27 mmol/L (21-32) Anion Gap 5 (6-14) 7 (6-14) Blood Urea Nitrogen 17 mg/dL (8-26) 11 mg/dL (8-26) Creatinine 0.9 mg/dL (0.7-1.3) 1.0 mg/dL (0.7-1.3) Estimated GFR (Cockcroft-Gault) 87.9 77.9 BUN/Creatinine Ratio 19 (6-20) 11 (6-20) Glucose Level 131 mg/dL (70-99) 120 mg/dL (70-99) Calcium Level 8.2 mg/dL (8.5-10.1) 7.9 mg/dL (8.5-10.1) Total Bilirubin 1.5 mg/dL (0.2-1.0) 0.7 mg/dL (0.2-1.0) 0.5 mg/dL (0.2-1.0) Aspartate Amino Transf (AST/SGOT) 200 U/L (15-37) 93 U/L (15-37) 62 U/L (15-37) Alanine Aminotransferase (ALT/SGPT) 169 U/L (16-63) 152 U/L (16-63) 112 U/L (16-63) Alkaline Phosphatase 68 U/L (46-116) 69 U/L (46-116) 72 U/L (46-116) Troponin I Quantitative < 0.017 ng/mL (0.000-0.055) < 0.017 ng/mL (0.000-0.055) Total Protein 6.0 g/dL (6.4-8.2) 5.7 g/dL (6.4-8.2) 5.7 g/dL (6.4-8.2) Albumin 3.0 g/dL (3.4-5.0) 3.1 g/dL (3.4-5.0) 2.8 g/dL (3.4-5.0) Albumin/Globulin Ratio 1.0 (1.0-1.7) 1.2 (1.0-1.7) Lipase 126 U/L (73-393) Direct Bilirubin 0.2 mg/dL (0.0-0.2) Triglycerides Level 91 mg/dL (0-150) Cholesterol Level 131 mg/dL (0-200) LDL Cholesterol, Calculated 81 mg/dL (0-100) VLDL Cholesterol, Calculated 18 mg/dL (0-40) Non-HDL Cholesterol Calculated 99 mg/dL (0-129) HDL Cholesterol 32 mg/dL (40-60) Cholesterol/HDL Ratio 4.1 Thyroid Stimulating Hormone (TSH) 0.644 uIU/mL (0.358-3.74) Laboratory Tests Test 09/26/19 13:55 09/27/19 04:05 White Blood Count 6.4 x10^3/uL (4.0-11.0) Red Blood Count 4.67 x10^6/uL (4.30-5.70) Hemoglobin 14.0 g/dL (13.0-17.5) Hematocrit 41.0 % (39.0-53.0) Mean Corpuscular Volume 88 fL (79-100) Mean Corpuscular Hemoglobin 30 pg (25-35) Mean Corpuscular Hemoglobin Concent 34 g/dL (31-37) Red Cell Distribution Width 13.2 % (11.5-14.5) Platelet Count 159 x10^3/uL (140-400) Sodium Level 141 mmol/L (136-145) Potassium Level 3.8 mmol/L (3.5-5.1) Chloride Level 107 mmol/L (98-107) Carbon Dioxide Level 27 mmol/L (21-32) Anion Gap 7 (6-14) Blood Urea Nitrogen 11 mg/dL (8-26) Creatinine 1.0 mg/dL (0.7-1.3) Estimated GFR (Cockcroft-Gault) 77.9 BUN/Creatinine Ratio 11 (6-20) Glucose Level 120 mg/dL (70-99) Calcium Level 7.9 mg/dL (8.5-10.1) Total Bilirubin 0.7 mg/dL (0.2-1.0) 0.5 mg/dL (0.2-1.0) Aspartate Amino Transf (AST/SGOT) 93 U/L (15-37) 62 U/L (15-37) Alanine Aminotransferase (ALT/SGPT) 152 U/L (16-63) 112 U/L (16-63) Alkaline Phosphatase 69 U/L (46-116) 72 U/L (46-116) Troponin I Quantitative < 0.017 ng/mL (0.000-0.055) Total Protein 5.7 g/dL (6.4-8.2) 5.7 g/dL (6.4-8.2) Albumin 3.1 g/dL (3.4-5.0) 2.8 g/dL (3.4-5.0) Albumin/Globulin Ratio 1.2 (1.0-1.7) Direct Bilirubin 0.2 mg/dL (0.0-0.2) Triglycerides Level 91 mg/dL (0-150) Cholesterol Level 131 mg/dL (0-200) LDL Cholesterol, Calculated 81 mg/dL (0-100) VLDL Cholesterol, Calculated 18 mg/dL (0-40) Non-HDL Cholesterol Calculated 99 mg/dL (0-129) HDL Cholesterol 32 mg/dL (40-60) Cholesterol/HDL Ratio 4.1 Thyroid Stimulating Hormone (TSH) 0.644 uIU/mL (0.358-3.74) Images Images HIDA and US reviewed Assessment/Plan Assessment/Plan cholelithiasis bradycardia cardiac w/u neg explained risks of l/s alvaro including but not limited to bleeding, infection, injury to surrounding structures needing more surgery later, open procedure, diarrhea, drain versus expectant treatment he will take this under advisement and discuss with his await his decision Thanks for consult JUDSON AMADOR MD September 27, 2019 12:22
[2019-09-27] MEDS ORDERED: IV RINGERS,LACTATED 1000ML 1,000 ML IV SCH (13:12)
[2019-09-27] MEDS ORDERED: LIDOCAINE 2% PF 5 ML VIAL. ONE (13:14)
[2019-09-27] MEDS ORDERED: ROCURONIUM 50 MG/5 ML VIAL. ONE (13:14)
[2019-09-27] MEDS ORDERED: HYDROmorphone 2 MG/ML VIAL IV PRN ×2 (13:15→16:30)
[2019-09-27] MEDS ORDERED: fentaNYL PF VIAL 100 MCG/2 ML VIAL IV PRN ×2 (13:15)
[2019-09-27] MEDS ORDERED: PROPOFOL 10 MG/ML (20ML) VIAL. IV ONE (13:15)
[2019-09-27] MEDS ORDERED: fentaNYL PF VIAL 100 MCG/2 ML VIAL ONE ×2 (13:15→16:07)
[2019-09-27] MEDS ORDERED: LIDOCAINE 1% PF 2 ML VIAL. ID PRN (13:15)
[2019-09-27] MEDS ORDERED: PROCHLORPERAZINE 10 MG/2 ML VIAL. IV PRN (13:15)
[2019-09-27] MEDS ORDERED: ONDANSETRON PF 4 MG/2 ML VIAL. IV PRN (13:15)
[2019-09-27] MEDS ORDERED: SURGICEL HEMOSTAT 4X8 EACH. ONE (13:55)
[2019-09-27] MEDS ORDERED: BUPIVACAINE-EPI 0.5%-1:200000 MPF 30 ML VIAL. ONE (13:55)
[2019-09-27] MEDS ORDERED: GLUCAGON,HUMAN RECOMBINANT 1 MG/ML VIAL. ONE (13:55)
[2019-09-27] MEDS ORDERED: IOHEXOL 300 MG/ML 50 ML VIAL. ONE (13:55)
[2019-09-27] MEDS ORDERED: SEVOFLURANE 61 TO 120 MINUTES. IH ONE (15:50)
[2019-09-27] MEDS ORDERED: GLYCOPYRROLATE 1 MG/5 ML VIAL. ONE (15:51)
[2019-09-27] MEDS ORDERED: NEOSTIGMINE METHYLSULFATE 5 MG/5 ML SYRINGE. ONE (15:51)
[2019-09-27] MEDS ORDERED: PHENYLEPHRINE in 0.9% NACL PF 1 MG/10 ML SYRINGE. IV ONE (15:56)
--- NOTE | 2019-09-27 16:07 | RAD ---
INDICATION: Fluoroscopy for procedure.Cholecystectomy. IMPRESSION: Fluoroscopy was utilized by the clinical service to assist with their procedure. There are 3 saved images that show contrast injection of the common bile duct with contrast seen flowing into the small bowel without evidence of obstruction at the common bile duct. There are several small filling defects within the common bile duct and common hepatic duct which could be secondary to air bubbles or stones.. 0.1 minutes of fluoroscopy time was used. This dictation is for the usage of fluoroscopy only. Please see the clinical service's procedure note for detail on the procedure. Electronically signed by: Kenny Lei MD (09/27/2019 4:04 PM) [id number]
--- NOTE | 2019-09-27 16:24 | PDOC ---
BRIEF OPERATIVE NOTE Date: September 27, 2019 Pre-Op Diagnosis symptomatic cholelithiasis Post-Op Diagnosis same, possible choledocholithiasis Procedure Performed l/s alvaro with grams Surgeon Fredy Seam Taper Machine Karissa GALAN Anesthesia Type: General Blood Loss 20cc IV Fluid 1200cc Specimens Obtained GB Findings chronic changes GB, grams show possible common duct stones Complications none JUDSON AMADOR MD September 27, 2019 16:24
[2019-09-27] MEDS ORDERED: oxyCODONE/APAP 5/325 1 TAB TABLET PO PRN (16:30)
[2019-09-27] MEDS ORDERED: NALOXONE 0.4 MG/ML VIAL. IV PRN (16:30)
[2019-09-27] MEDS ORDERED: ONDANSETRON PF 4 MG/2 ML VIAL. IVP PRN (16:30)
[2019-09-27] MEDS ORDERED: DEXTROSE 50% 25 GM / 50ML DISP.SYRIN. IV PRN (16:30)
[2019-09-27] MEDS ORDERED: diphenhydrAMINE HCL 25 MG CAPSULE PO PRN (16:30)
[2019-09-27] MEDS ORDERED: 0.9 % SODIUM CHLORIDE 10 ML DISP.SYRIN. IV PRN (16:30)
[2019-09-27] MEDS ORDERED: MORPHINE SULFATE 2 MG/ML VIAL. ONE (16:36)
[2019-09-27] MEDS: MORPHINE SULFATE 2 MG/ML VIAL. IV PRN ×2 (16:40→16:51)
--- NOTE | 2019-09-27 17:14 | OP ---
DATE OF SURGERY: 09/27/2019 PREOPERATIVE DIAGNOSIS: Symptomatic cholelithiasis. POSTOPERATIVE DIAGNOSIS: Symptomatic cholelithiasis, possible choledocholithiasis. PROCEDURE: Laparoscopic cholecystectomy with cholangiogram. SURGEON: Karl Amador MD. FREIGHT AIR BRAKE FITTER: ADAMA Erickson. ANESTHESIA: General endotracheal. BLOOD LOSS: 20 mL. INTRAVENOUS FLUIDS: 1200 mL. OPERATIVE FINDINGS: The gallbladder was somewhat sclerotic with omental adhesions. Cholangiogram suggested possible common duct stones versus air bubbles, however, contrast spilled freely into the duodenum and preoperative labs were not elevated (bilirubin, LFTs). DESCRIPTION OF PROCEDURE: The patient brought to the operating suite, given a general endotracheal anesthetic and the abdomen prepped and draped in usual sterile fashions. A supraumbilical incision was infiltrated with local anesthetic, incised and a 5 mm Visiport used to gain access into the abdominal cavity. Pneumoperitoneum established. Camera inserted. Inspection carried out with results as noted above. With the table in reverse Trendelenburg rolled to the left, the epigastric, midclavicular, and lateral ports were placed under direct vision. The gallbladder was retracted superolaterally and omental adhesions were carefully taken down with cautery and blunt dissection, taking care to avoid injury to the adjacent bowel. The cystic duct and cystic artery were exposed and the duct was clipped on the gallbladder side. When the cystic duct was opened, we milked yellow small debris from it and then had a free bile flow through it. Cholangiograms were made showing possible air bubble versus small round stones in the common duct, however, contrast spilled readily into the duodenum. In light of this, the catheter was removed. The cystic duct was clipped x 3 and divided, taking care to avoid injury or compromise the common duct. Three vessels leading into the gallbladder were each clipped x 2 and divided and the gallbladder freed from the bed and placed in an EndoCatch bag. Hemostasis obtained in the fossa with cautery and a small piece of Surgicel. No bile leak was seen. Table returned to level. Gallbladder delivered through the epigastric incision, which was then closed with interrupted 0 Vicryl suture. At 6 cm pressure, no bleeding from the epigastric closure was seen or from the midclavicular or lateral port sites after their removal. Abdomen decompressed, camera slowly removed, no bleeding seen. Skin incisions closed with subcuticular 4-0 Monocryl. Steri-Strips and sterile dressings applied. The patient was awakened from his anesthetic and taken to the recovery room in satisfactory condition. KARL AMADOR MD DR: HA/paola JOB#: [id number] / [id number] RAMON Stevens MD, SCOTT MD
[2019-09-27] MEDS: DOCUSATE SODIUM 100 MG CAPSULE. PO SCH (21:25)
[2019-09-28 03:00] VITALS: BP 114/57
[2019-09-28 04:36] LABS: HEMOGLOBIN 13.8 g/dL (13.0-17.5); RED BLOOD COUNT 4.57 x10^6/uL (4.30-5.70); WHITE BLOOD COUNT 10.2 x10^3/uL (4.0-11.0)
[2019-09-28] MEDS ORDERED: ENOXAPARIN 40 MG/0.4 ML SYRINGE. SQ SCH (06:00)
[2019-09-28] MEDS ORDERED: ceFAZolin SODIUM 3 GM in IV DEXTROSE 5% 100ML 100 ML IV PRN (06:00)
[2019-09-28 06:49] LABS: ALBUMIN 3.1 g/dL (3.4-5.0); CALCIUM 7.9 mg/dL (8.5-10.1); CREATININE 0.9 mg/dL (0.7-1.3); DIRECT BILIRUBIN 0.2 mg/dL (0.0-0.2); GFR 87.9; POTASSIUM 3.7 mmol/L (3.5-5.1); TOTAL BILIRUBIN 0.8 mg/dL (0.2-1.0); TOTAL PROTEIN 6.3 g/dL (6.4-8.2)
[2019-09-28 07:09] VITALS: BP 119/65
--- NOTE | 2019-09-28 08:38 | PDOC ---
CARDIO Progress Notes Date and Time Date of Service 09/28/2019 Time of Evaluation 0940 Subjective Subjective: No Chest Pain, No shortness of breath, No Palpitations Vitals Vitals Vital Signs Date Time Temp Pulse Resp B/P (MAP) Pulse Ox O2 Delivery O2 Flow Rate FiO2 09/28/19 07:09 98.4 73 18 119/65 (83) 95 Room Air 98.4 09/27/19 17:21 10.0 Weight Weight [ ] Input and Output Intake and Output Intake and Output 09/28/19 07:00 Intake Total 2040 ml Output Total 2395 ml Balance -355 ml Intake Oral 240 ml IV Total 1800 ml Output Urine Total 2375 ml Estimated Blood Loss 20 ml Laboratory Labs Laboratory Tests Test 09/28/19 04:00 White Blood Count 10.2 x10^3/uL (4.0-11.0) Red Blood Count 4.57 x10^6/uL (4.30-5.70) Hemoglobin 13.8 g/dL (13.0-17.5) Hematocrit 40.0 % (39.0-53.0) Mean Corpuscular Volume 88 fL (79-100) Mean Corpuscular Hemoglobin 30 pg (25-35) Mean Corpuscular Hemoglobin Concent 35 g/dL (31-37) Red Cell Distribution Width 13.0 % (11.5-14.5) Platelet Count 112 x10^3/uL (140-400) Sodium Level 139 mmol/L (136-145) Potassium Level 3.7 mmol/L (3.5-5.1) Chloride Level 104 mmol/L (98-107) Carbon Dioxide Level 20 mmol/L (21-32) Anion Gap 15 (6-14) Blood Urea Nitrogen 15 mg/dL (8-26) Creatinine 0.9 mg/dL (0.7-1.3) Estimated GFR (Cockcroft-Gault) 87.9 BUN/Creatinine Ratio 17 (6-20) Glucose Level 87 mg/dL (70-99) Calcium Level 7.9 mg/dL (8.5-10.1) Total Bilirubin 0.8 mg/dL (0.2-1.0) Direct Bilirubin 0.2 mg/dL (0.0-0.2) Aspartate Amino Transf (AST/SGOT) 50 U/L (15-37) Alanine Aminotransferase (ALT/SGPT) 90 U/L (16-63) Alkaline Phosphatase 63 U/L (46-116) Total Protein 6.3 g/dL (6.4-8.2) Albumin 3.1 g/dL (3.4-5.0) Albumin/Globulin Ratio 1.0 (1.0-1.7) Physical Exam HEENT: Neck Supple W Full Motion Chest: Symmetric LUNGS: Clear to Auscultation Heart: RRR (SR) Abdomen: Other (S/P lap alvaro) Extremities: No Edema Neurology: alert, oriented, follow commands Assessment Assessment 1. Abdominal pain/cholelithiasis: S/P lap alvaro POD#1 2. Dizziness; resolved. Possibly vasovagal. Echo with preserved LV systolic function. No WMA. No acute events on telemetry overnight 3. Sinus bradycardia; noted at [facility]. EKG without significant acute changes. Troponin negative x2. HR has been stable per VS. 4. GERD Recommendations Outpatient event monitor arranged Aggressive IS, increase activity. Follow up in our office with Dr. Masy 11/22/19 at 10:30. ADRIÁN RUIZ APRN September 28, 2019 08:38
[2019-09-28] MEDS: PANTOPRAZOLE IV PUSH 40 MG VIAL. IVP SCH (10:00)
[2019-09-28] MEDS: DOCUSATE SODIUM 100 MG CAPSULE. PO SCH (10:00)
--- NOTE | 2019-09-28 10:04 | PN ---
DATE: 09/28/2019 SUBJECTIVE: The patient is resting, slightly propped up, eating his breakfast, tolerating his clear liquid diet. He said that he has passed some gas and does have discomfort in the right upper quadrant, but no nausea, no vomiting. He underwent laparoscopic cholecystectomy successfully yesterday; however, the intraoperative cholangiogram showed possible air bubbles or small stones. PHYSICAL EXAMINATION: GENERAL: When I saw him this morning, he looked well and was clearly in no apparent respiratory distress. No pallor, jaundice, cyanosis or thyromegaly. No jugular venous distention or limb edema. VITAL SIGNS: His heart rate was 73, blood pressure was 119/65, temperature was 98.4, respiratory rate was 18, and oxygen saturation was 95%. HEAD, EYES, EARS, NOSE AND THROAT: Normocephalic, atraumatic. NECK: Supple. HEART: Showed normal first and second heart sounds. No gallop or murmur. CHEST: Clear to auscultation. No crepitation or rhonchi. ABDOMEN: Distended and soft. Tenderness in the right upper quadrant. NEUROLOGIC: He is awake, alert, and responding appropriately. All cranial nerves intact. He moves extremities without difficulty. His intake was 710 and output was 1175. LABORATORY DATA: His lab work this morning showed a serum sodium 139, potassium 3.7, chloride 104, bicarbonate 20, anion gap of 15, BUN 15, and creatinine 0.9. Estimated GFR was 88 mL per minute. His glucose was 87. Calcium was 7.9. His bilirubin was 0.8. AST and ALT are elevated, but trending down. Alkaline phosphatase was normal. Total protein was 6.3. Albumin 3.1. His white cell count was 10,000, hemoglobin 13.8, hematocrit 40, MCV 88, and platelet count of 112,000. ASSESSMENT: Acute cholecystitis with possible cholelithiasis, status post laparoscopic cholecystectomy. Intraoperative cholangiogram showed possible filling defects and/or small stones in the common bile duct. The patient has also thrombocytopenia, his platelet count are trending down from 169 to 112. PLAN: My plan is obviously to consult with the Surgical team and Gastroenterology team and if they okay with his discharge, we will discharge him home today. RAMON ARCHIBALD MD DR: ELIANA/paola JOB#: [id number] / [id number]
--- NOTE | 2019-09-28 10:06 | PDOC ---
Subjective: Subjective: Some discomfort but not bad "considering." Taking some clears, passing gas. Objective: Vital Signs: Vital Signs Date Time Temp Pulse Resp B/P (MAP) Pulse Ox O2 Delivery O2 Flow Rate FiO2 09/28/19 07:09 98.4 73 18 119/65 (83) 95 Room Air 98.4 09/27/19 17:21 10.0 Labs: Laboratory Tests Test 09/28/19 04:00 White Blood Count 10.2 x10^3/uL Red Blood Count 4.57 x10^6/uL Hemoglobin 13.8 g/dL Hematocrit 40.0 % Mean Corpuscular Volume 88 fL Mean Corpuscular Hemoglobin 30 pg Mean Corpuscular Hemoglobin Concent 35 g/dL Red Cell Distribution Width 13.0 % Platelet Count 112 x10^3/uL Sodium Level 139 mmol/L Potassium Level 3.7 mmol/L Chloride Level 104 mmol/L Carbon Dioxide Level 20 mmol/L Anion Gap 15 Blood Urea Nitrogen 15 mg/dL Creatinine 0.9 mg/dL Estimated GFR (Cockcroft-Gault) 87.9 BUN/Creatinine Ratio 17 Glucose Level 87 mg/dL Calcium Level 7.9 mg/dL Total Bilirubin 0.8 mg/dL Direct Bilirubin 0.2 mg/dL Aspartate Amino Transf (AST/SGOT) 50 U/L Alanine Aminotransferase (ALT/SGPT) 90 U/L Alkaline Phosphatase 63 U/L Total Protein 6.3 g/dL Albumin 3.1 g/dL Albumin/Globulin Ratio 1.0 Imaging: IO 09/26 IMPRESSION: Fluoroscopy was utilized by the clinical service to assist with their procedure. There are 3 saved images that show contrast injection of the common bile duct with contrast seen flowing into the small bowel without evidence of obstruction at the common bile duct. There are several small filling defects within the common bile duct and common hepatic duct which could be secondary to air bubbles or stones..0.1 minutes of fluoroscopy time was used. This dictation is for the usage of fluoroscopy only. Please see the clinical service's procedure note for detail on the procedure. Echocardiogram 09/26 <Conclusion> The left ventricular systolic function is normal and the ejection fraction is within normal range. The Ejection Fraction is 55-60%. There is normal LV segmental wall motion. PE: GEN: NAD - walking from restroom back to bed LUNGS: clear HEART: RRR ABD: soft NEURO/PSYCH: A & O 3 A/P: S/p cholecystectomy Abnormal LFTs - better -- IOC noted but LFTs continue to improve and CBD normal on US. Will review w/ Dr. Aragon. Diet per surgery. PO PPI. Hemodynamically unstable?: No Is patient in severe pain?: No Is NPO status required?: No ALPHONSE LOPEZ September 28, 2019 10:06
[2019-09-28 10:53] VITALS: BP 119/64
[2019-09-28] MEDS: IV NORMAL SALINE 1000ML BAG 1,000 ML IV SCH ×2 (11:10→16:20)
--- NOTE | 2019-09-28 12:11 | NUR ---
SS following up with discharge planning. SS discussed with pt RN. Pt had laparoscopic cholecystectomy with Dr. Valdez on 09/27/2019. Pt currently on room air and working to advance diet. Pt currently on full liquid diet. Pt needing bowel movement. Discharge plan is home when ready. SS will continue to follow for discharge planning.
--- NOTE | 2019-09-28 13:56 | PDOC ---
SURGICAL PROGRESS NOTE Subjective comfortable Vital Signs Vital Signs Date Time Temp Pulse Resp B/P (MAP) Pulse Ox O2 Delivery O2 Flow Rate FiO2 09/28/19 10:53 97.8 83 18 119/64 (82) 95 Room Air 97.8 09/27/19 17:21 10.0 I&O Intake and Output 09/28/19 07:00 Intake Total 2040 ml Output Total 2395 ml Balance -355 ml Intake Oral 240 ml IV Total 1800 ml Output Urine Total 2375 ml Estimated Blood Loss 20 ml PATIENT HAS A BLANCO: No General: Alert, No acute distress Abdomen: Soft Labs Laboratory Tests Test 09/26/19 13:55 09/27/19 04:05 09/28/19 04:00 White Blood Count 6.4 x10^3/uL (4.0-11.0) 10.2 x10^3/uL (4.0-11.0) Red Blood Count 4.67 x10^6/uL (4.30-5.70) 4.57 x10^6/uL (4.30-5.70) Hemoglobin 14.0 g/dL (13.0-17.5) 13.8 g/dL (13.0-17.5) Hematocrit 41.0 % (39.0-53.0) 40.0 % (39.0-53.0) Mean Corpuscular Volume 88 fL (79-100) 88 fL (79-100) Mean Corpuscular Hemoglobin 30 pg (25-35) 30 pg (25-35) Mean Corpuscular Hemoglobin Concent 34 g/dL (31-37) 35 g/dL (31-37) Red Cell Distribution Width 13.2 % (11.5-14.5) 13.0 % (11.5-14.5) Platelet Count 159 x10^3/uL (140-400) 112 x10^3/uL (140-400) Sodium Level 141 mmol/L (136-145) 139 mmol/L (136-145) Potassium Level 3.8 mmol/L (3.5-5.1) 3.7 mmol/L (3.5-5.1) Chloride Level 107 mmol/L (98-107) 104 mmol/L (98-107) Carbon Dioxide Level 27 mmol/L (21-32) 20 mmol/L (21-32) Anion Gap 7 (6-14) 15 (6-14) Blood Urea Nitrogen 11 mg/dL (8-26) 15 mg/dL (8-26) Creatinine 1.0 mg/dL (0.7-1.3) 0.9 mg/dL (0.7-1.3) Estimated GFR (Cockcroft-Gault) 77.9 87.9 BUN/Creatinine Ratio 11 (6-20) 17 (6-20) Glucose Level 120 mg/dL (70-99) 87 mg/dL (70-99) Calcium Level 7.9 mg/dL (8.5-10.1) 7.9 mg/dL (8.5-10.1) Total Bilirubin 0.7 mg/dL (0.2-1.0) 0.5 mg/dL (0.2-1.0) 0.8 mg/dL (0.2-1.0) Aspartate Amino Transf (AST/SGOT) 93 U/L (15-37) 62 U/L (15-37) 50 U/L (15-37) Alanine Aminotransferase (ALT/SGPT) 152 U/L (16-63) 112 U/L (16-63) 90 U/L (16-63) Alkaline Phosphatase 69 U/L (46-116) 72 U/L (46-116) 63 U/L (46-116) Troponin I Quantitative < 0.017 ng/mL (0.000-0.055) Total Protein 5.7 g/dL (6.4-8.2) 5.7 g/dL (6.4-8.2) 6.3 g/dL (6.4-8.2) Albumin 3.1 g/dL (3.4-5.0) 2.8 g/dL (3.4-5.0) 3.1 g/dL (3.4-5.0) Albumin/Globulin Ratio 1.2 (1.0-1.7) 1.0 (1.0-1.7) Direct Bilirubin 0.2 mg/dL (0.0-0.2) 0.2 mg/dL (0.0-0.2) Triglycerides Level 91 mg/dL (0-150) Cholesterol Level 131 mg/dL (0-200) LDL Cholesterol, Calculated 81 mg/dL (0-100) VLDL Cholesterol, Calculated 18 mg/dL (0-40) Non-HDL Cholesterol Calculated 99 mg/dL (0-129) HDL Cholesterol 32 mg/dL (40-60) Cholesterol/HDL Ratio 4.1 Thyroid Stimulating Hormone (TSH) 0.644 uIU/mL (0.358-3.74) Laboratory Tests Test 09/28/19 04:00 White Blood Count 10.2 x10^3/uL (4.0-11.0) Red Blood Count 4.57 x10^6/uL (4.30-5.70) Hemoglobin 13.8 g/dL (13.0-17.5) Hematocrit 40.0 % (39.0-53.0) Mean Corpuscular Volume 88 fL (79-100) Mean Corpuscular Hemoglobin 30 pg (25-35) Mean Corpuscular Hemoglobin Concent 35 g/dL (31-37) Red Cell Distribution Width 13.0 % (11.5-14.5) Platelet Count 112 x10^3/uL (140-400) Sodium Level 139 mmol/L (136-145) Potassium Level 3.7 mmol/L (3.5-5.1) Chloride Level 104 mmol/L (98-107) Carbon Dioxide Level 20 mmol/L (21-32) Anion Gap 15 (6-14) Blood Urea Nitrogen 15 mg/dL (8-26) Creatinine 0.9 mg/dL (0.7-1.3) Estimated GFR (Cockcroft-Gault) 87.9 BUN/Creatinine Ratio 17 (6-20) Glucose Level 87 mg/dL (70-99) Calcium Level 7.9 mg/dL (8.5-10.1) Total Bilirubin 0.8 mg/dL (0.2-1.0) Direct Bilirubin 0.2 mg/dL (0.0-0.2) Aspartate Amino Transf (AST/SGOT) 50 U/L (15-37) Alanine Aminotransferase (ALT/SGPT) 90 U/L (16-63) Alkaline Phosphatase 63 U/L (46-116) Total Protein 6.3 g/dL (6.4-8.2) Albumin 3.1 g/dL (3.4-5.0) Albumin/Globulin Ratio 1.0 (1.0-1.7) Assessment/Plan POD 1 l/c home from surgical standpoint f/u with me in [place] office 10/03 JUDSON AMADOR MD September 28, 2019 13:56
[2019-09-28 14:41] VITALS: BP 121/70
[2019-09-29] MEDS ORDERED: PANTOPRAZOLE 40 MG TABLET.DR. PO SCH (07:30)
--- NOTE | 2019-09-29 13:30 | DS ---
DATE OF DISCHARGE: 09/28/2019 HOSPITAL COURSE: The patient is a 54-year-old male patient who was initially seen at the Emergency Room of [facility] where he presented with right upper quadrant pain, bradycardia and hypotension. He apparently has multiple prior episodes of pain in his right upper quadrant and was placed on acid-reducing medication, which helped to manage his symptoms. He was extensively investigated in the Emergency Room and his lab work was basically unremarkable. His white cell count was 8800. His chemistry was nonrevealing. His prothrombin time, INR and aPTT were normal. Urinalysis unrevealing. His ultrasound of the abdomen showed the pancreas is not visualized, the liver length measures 15.1, increased echogenicity noted throughout the liver, likely hepatic steatosis. The gallbladder was contracted, gallbladder wall thickness was 4.1. Has had a chest x-ray, which was unremarkable. He underwent CT scan of the abdomen and pelvis, which basically showed minimal bibasilar lung atelectasis. No evidence of free air identified in the abdomen. The liver, spleen, adrenal glands unremarkable. Gallbladder is mildly distended with questionable gallstones identified in the gallbladder. The stomach is mildly distended. Given his presentation and that he received 2 liters of fluid and there was some suggestion that he might have gallbladder disease, he was transferred to [facility] to arrange for hepatobiliary scan and to consult the surgical team. He was kept n.p.o., started on IV fluid, IV fentanyl and famotidine and Zofran and his repeat lab work in [facility] revealed that his liver enzymes have dramatically increased from those in [facility] and the hepatobiliary scan, however, was unremarkable and showed the cystic duct and common bile duct are patent, negative for acute cholecystitis. The gallbladder ejection fraction is normal. Given the presentation of bradycardia, hypotension and abnormal liver enzymes, I was worried that he might have right ventricular infarct and therefore, I consulted the Cardiology team as well as the Gastroenterology team. He was seen by the makeup artist and an echocardiogram was done, which basically showed that left ventricular systolic function is normal, ejection fraction within normal range. Ejection fraction was 55% to 60%. He has normal left ventricular segmental wall motion. The Gastroenterology team repeated the abdominal ultrasound, which at this time showed that the patient has cholelithiasis with abnormal gallbladder wall thickening, which is likely reflective inflammatory changes from cholecystitis. Adenomyomatosis would also be a possibility of biliary ductal dilatation. Increased liver echogenicity, most likely due to steatosis. The patient was seen by the surgical team and he underwent laparoscopic cholecystectomy with cholangiogram. The patient did well postoperatively and was started on clear liquid diet and advance as tolerated. He was evaluated by the surgical team and Dr. Daniel recommended the patient can be discharged home to follow him at his office in [place] on 10/03. PHYSICAL EXAMINATION: GENERAL: On the day of discharge, he looked well and was clearly in no apparent respiratory distress. No pallor, jaundice, cyanosis or thyromegaly. No jugular venous distention or limb edema. VITAL SIGNS: His heart rate was 73, blood pressure was 119/65, temperature was 98.4, respiratory rate was 18 and oxygen saturation was 95%. The rest of clinical exam is stable. His intake was 710, output was 1175. LABORATORY DATA: His lab work showed that his serum sodium was 139, potassium 3.7, chloride 104, bicarbonate 20, anion gap of 15, BUN 15, creatinine 0.9, estimated GFR was 88 mL per minute. His glucose was 87, calcium was 7.9. Total bilirubin and alkaline phosphatase were normal. AST and ALT elevated, but trending down. His total protein was 6.3, albumin 3.1. White cell count was 10,000, hemoglobin 14, hematocrit 40, MCV 88 and platelet count 112,000. DISCHARGE MEDICATIONS: He was discharged home to continue with oxycodone/APAP 5/325 one tablet every 6 hours. FINAL DISCHARGE DIAGNOSIS: Acute cholecystitis, status post laparoscopic cholecystectomy. He will follow with Dr. Daniel in his clinic at [place] on 10/04/2019. RAMON ARCHIBALD MD DR: ELIANA/paola JOB#: [id number] / [id number]
== END 2019-09-28 17:00 | disposition home or self-care (01) | DRG 419 ==
LOC: 4 NORTH 15:54 → 2 NORTH 09-26 16:10
PROVIDERS: ADMIT Internal Medicine; ATTEND Internal Medicine
PROC: BF101ZZ Fluoroscopy of Bile Ducts using Low Osmolar Contrast (ICD-10-PCS; 2019-09-27)
PROC: 0FT44ZZ Resection of Gallbladder, Percutaneous Endoscopic Approach (ICD-10-PCS; principal; 2019-09-27 14:00)
DX: K80.10 Calculus of gallbladder with chronic cholecystitis without obstruction (principal); K21.9 Gastro-esophageal reflux disease without esophagitis; D69.6 Thrombocytopenia, unspecified; K42.9 Umbilical hernia without obstruction or gangrene; K66.0 Peritoneal adhesions (postprocedural) (postinfection); K76.0 Fatty (change of) liver, not elsewhere classified; M47.816 Spondylosis without myelopathy or radiculopathy, lumbar region; Z80.1 Family history of malignant neoplasm of trachea, bronchus and lung; Z82.49 Family history of ischemic heart disease and other diseases of the circulatory system; Z83.3 Family history of diabetes mellitus; I95.9 Hypotension, unspecified; R00.1 Bradycardia, unspecified; R42 Dizziness and giddiness; R79.89 Other specified abnormal findings of blood chemistry; R94.31 Abnormal electrocardiogram [ECG] [EKG]
CPT/HCPCS: 36415; 74300; 76705; 78227; 80053; 80061; 80076; 82248; 83690; 84443; 84484; 85007; 85025; 85027; 93005; 93306; A7015; A9537; C9113; J0690; J1610; J1650; J2270; J2370; J2704; J2710; J2805; J3010; J3490; J7030; J7060; J7120; Q9967; G0378